=== PATIENT | male | born 1930 | race Caucasian/White ===

== ENCOUNTER 2019-08-17 15:02 | Inpatient (IN) | payer MEDICARE, OTHER ==
[~2019-08-17] VITALS: Ht 162.6 cm; Wt 80.0 kg
[~2019-08-17 15:02] MED LIST: CARV-50 PO; ESCI20TA38 PO; FURO40TA4 PO; LEVO75TA7 PO; POTA20TA10 PO; TAMS0.4C32 PO; WARF3TAB56 PO
[2019-08-17 16:01] LABS: BASOPHILS % (AUTO) 0.4 % (0-1); EOSINOPHILS # (AUTO) 0.1 X10'3 (0-0.9); EOSINOPHILS % (AUTO) 1.6 % (0-6); HEMATOCRIT 42.7 % (42.0-52.0); HEMOGLOBIN 14.1 g/dl (14.0-17.9); LYMPHOCYTES # (AUTO) 0.9 X10'3 (1.1-4.8); LYMPHOCYTES % (AUTO) 10.8 % (21-51); MEAN CORPUSCULAR HEMOGLOBIN 31.8 PG (27.0-31.0); MEAN CORPUSCULAR HGB CONC 33.1 g/dL (33.0-36.5); MEAN CORPUSCULAR VOLUME 96.2 FL (78-98); MEAN PLATELET VOLUME 8.9 FL (7.4-10.4); MONOCYTES # (AUTO) 0.8 X10'3 (0-0.9); MONOCYTES % (AUTO) 9.5 % (2-12); NEUTROPHILS # (AUTO) 6.7 X10'3 (1.8-7.7); NEUTROPHILS % (AUTO) 77.7 % (42-75); PLATELET COUNT 170 X10'3 (140-440); RED BLOOD COUNT 4.44 X10'6 (4.70-6.10); RED CELL DISTRIBUTION WIDTH 15.7 % (11.5-14.5); WHITE BLOOD COUNT 8.6 X10'3 (4.5-11.0)
[2019-08-17 16:06] LABS: ABG BASE EXCESS 1.2 mmol/L (-2.0-3.0); ABG HCO3 27.2 mmol/L (22.0-26.0); ABG PCO2 (T) 48.3 mmHg (35.0-45.0); ABG PH (T) 7.368 (7.350-7.450); ALLEN'S TEST Positive; FCOHb 1.8 % (0.5-1.5); FMetHb 0.1 % (0.3-1.12); FO2Hb 86.3 % (94-100); RESPIRATORY RATE 16 b/min; RESPIRATORY RATE (OBSERVED) 21 b/min; TOTAL HEMOGLOBIN 14.5 G/dl (14.0-17.9)
[2019-08-17 16:13] LABS: D-DIMER 0.54 MG/L FEU (0-0.50); PARTIAL THROMBOPLASTIN TIME 35 SECONDS (22-32)
[2019-08-17 16:17] LABS: ALANINE AMINOTRANSFERASE 29 U/L (12-78); ALBUMIN 3.2 G/DL (3.4-5.0); ALBUMIN/GLOBULIN RATIO 0.8 (1.1-1.5); ALKALINE PHOSPHATASE 69 IU/L (46-116); ANION GAP 5 (8-16); ASPARTATE AMINO TRANSFERASE 23 U/L (10-37); BILIRUBIN,TOTAL 0.9 MG/DL (0.1-1.0); BLOOD UREA NITROGEN 39 MG/DL (7-18); CALCIUM 8.4 MG/DL (8.5-10.1); CHLORIDE 108 MMOL/L (99-107); CREATININE 1.86 MG/DL (0.60-1.10); GLUCOSE 102 MG/DL (70-104); POTASSIUM 4.3 MMOL/L (3.5-5.1); SODIUM 145 MMOL/L (135-145); TOTAL CARBON DIOXIDE 32.3 MMOL/L (24-32); TOTAL PROTEIN 7.3 G/DL (6.4-8.2); eGFR 35 ML/MIN
[2019-08-17] MEDS ORDERED: furosemide 10 MG/1 ML 10ml inj IV ONE (16:55)
[2019-08-17] MEDS ORDERED: levoFLOXACIN-Levaquin 750MG/D5 150 ML IV ONE (17:05)
[2019-08-17] MEDS ORDERED: ondansetron/PF 4mg/2ml inj IV PRN (17:10)
[2019-08-17] MEDS ORDERED: mag hydrox/Alum hydrox/simeth 30ml oral suspension PO PRN (17:10)
[2019-08-17] MEDS ORDERED: acetaminophen 325mg tablet PO PRN (17:10)
[2019-08-17] MEDS ORDERED: magnesium hydroxide 30ml (MOM) UD suspension PO PRN (17:10)
[2019-08-17] MEDS ORDERED: albuterol 2.5 MG/3 ML nebule NEB PRN (17:10)
[2019-08-17] MEDS ORDERED: WARF3TAB56 PO (17:38)
[2019-08-17] MEDS ORDERED: FURO20TA4 PO (17:38)
[2019-08-17 18:48] LABS: CLARITY,URINE CLEAR (Clear); COLOR,URINE YELLOW (Yellow); GLUCOSE, URINE NEGATIVE (Neg); KETONES,URINE NEGATIVE (Neg); LEUKOCYTE ESTERASE ,URINE NEGATIVE (Neg); NITRITES, URINE NEGATIVE (Neg); OCCULT BLOOD,URINE NEGATIVE (Neg); PROTEIN,URINE NEGATIVE (Neg); UA COLLECTION TYPE STRAIGHT CATH; UROBILINOGEN,URINE 0.2 E.U/dL (0.2-1.0)
[2019-08-17 19:20] VITALS: BP 125/68
[2019-08-17] MEDS: carVEDilol 12.5mg tablet PO SCH (20:00)
[2019-08-17] MEDS ORDERED: heparin, porcine 5000 units/ml vial SQ SCH (20:00)
--- NOTE | 2019-08-17 20:48 | NUR ---
PAGER ID: [phone] MESSAGE: Thanh Waldo room 311, pt has expressive aphasia, wan all his MEDs IV, keep Him NPO until bedside swallow, can we do a CT of Head for any CON[employer]BER changes? Deangelo. [facility] unit 5654.
--- NOTE | 2019-08-17 21:43 | NUR ---
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 Concerned current presentation is off baseline. Please call to discuss. Addendum: 08/17/19 at 2152 by Viv Mckinnon RN per stroke nurse due to the length of time of symptoms and patients reported baseline, request level 2 workup from .
--- NOTE | 2019-08-17 21:55 | NUR ---
PAGER ID: [phone] MESSAGE: 311 pt Jiang presentation varying from baseline per . Spoke to stroke nurse regarding situation. May I have orders for head CT please? Please advise - [phone]
[2019-08-17 22:00] VITALS: BP 124/70
[2019-08-17] MEDS: furosemide 10 MG/1 ML 10ml inj IV SCH (22:35)
--- NOTE | 2019-08-17 23:50 | NUR ---
Called Dr. Machado and informed him regarding the patient not responding to any questions. The patient has a history of CVA. We requested to do a CT of the head to rule out any acute RED LEADER changes, but the Dr. Machado stated that since the condition is not acute we could reevaluate the patient in the morning. Recommended a bedside swallowing test and if the patient failed the test, then called him back. No other orders were given at this time.
--- NOTE | 2019-08-18 00:04 | NUR ---
patient refused bedside swallowing test. Hold on the PO medications until the patient passes bedside swallowing test. MelanieRN, charge nurse is aware of the issue.
[2019-08-18 02:00] VITALS: BP 124/96
[2019-08-18 03:40] LABS: BASOPHILS % (AUTO) 0.4 % (0-1); EOSINOPHILS # (AUTO) 0.3 X10'3 (0-0.9); EOSINOPHILS % (AUTO) 3.6 % (0-6); HEMATOCRIT 39.5 % (42.0-52.0); HEMOGLOBIN 13.2 g/dl (14.0-17.9); LYMPHOCYTES # (AUTO) 1.2 X10'3 (1.1-4.8); LYMPHOCYTES % (AUTO) 13.4 % (21-51); MEAN CORPUSCULAR HEMOGLOBIN 31.8 PG (27.0-31.0); MEAN CORPUSCULAR HGB CONC 33.4 g/dL (33.0-36.5); MEAN CORPUSCULAR VOLUME 95.3 FL (78-98); MEAN PLATELET VOLUME 8.8 FL (7.4-10.4); MONOCYTES % (AUTO) 11.4 % (2-12); NEUTROPHILS # (AUTO) 6.4 X10'3 (1.8-7.7); NEUTROPHILS % (AUTO) 71.2 % (42-75); PLATELET COUNT 157 X10'3 (140-440); RED BLOOD COUNT 4.15 X10'6 (4.70-6.10); RED CELL DISTRIBUTION WIDTH 15.3 % (11.5-14.5)
[2019-08-18 03:54] LABS: ALBUMIN 2.7 G/DL (3.4-5.0); ANION GAP 3 (8-16); BLOOD UREA NITROGEN 34 MG/DL (7-18); BUN/CREATININE RATIO 18.7 (5.4-32.0); CALCIUM 8.1 MG/DL (8.5-10.1); CHLORIDE 106 MMOL/L (99-107); CREATININE 1.82 MG/DL (0.60-1.10); GLUCOSE 85 MG/DL (70-104); POTASSIUM 3.7 MMOL/L (3.5-5.1); SODIUM 144 MMOL/L (135-145); TOTAL CARBON DIOXIDE 35.4 MMOL/L (24-32); eGFR 35 ML/MIN
[2019-08-18 06:00] VITALS: BP 144/62
--- NOTE | 2019-08-18 06:10 | NUR ---
Patient in room MED 311. I have received report from ALLYSSA King and had the opportunity to ask questions and assume patient care.
--- NOTE | 2019-08-18 06:22 | NUR ---
Gave report to Melvin. Answered all the questions.
--- NOTE | 2019-08-18 06:25 | NUR ---
I have reviewed and agree with all interventions, assessments performed and documented by Beth.
--- NOTE | 2019-08-18 07:56 | NUR ---
Paged Dr. Castellanos for head CT "Re: Waldo Jiang in 311. Patient has neuro changes from baseline- harder to arouse, more expressive aphasia than usual. can you order a head CT? thank you, Agnieszka FAJARDO [phone]"
[2019-08-18] MEDS ORDERED: levoFLOXACIN-Levaquin 500mg/D5 100 ML IV SCH (08:00)
[2019-08-18] MEDS: furosemide 10 MG/1 ML 10ml inj IV SCH ×2 (08:39→19:14)
--- NOTE | 2019-08-18 08:42 | NUR ---
DR. CARTER AT BEDSIDE, ORDER FOR ABG PAGED RT WELL CT FOR TESTS TO BE DONE RHETT
[2019-08-18 09:05] LABS: ABG BASE EXCESS 5.3 mmol/L (-2.0-3.0); ABG HCO3 33.3 mmol/L (22.0-26.0); ABG PCO2 (T) 63.8 mmHg (35.0-45.0); ABG PH (T) 7.335 (7.350-7.450); ABG PO2 (T) 112.7 mmHg (83-108); ALLEN'S TEST Positive; FCOHb 0.8 % (0.5-1.5); FLOW 3 L/min; FMetHb 0.3 % (0.3-1.12); FO2Hb 96.9 % (94-100); TOTAL HEMOGLOBIN 14.1 G/dl (14.0-17.9)
--- NOTE | 2019-08-18 09:06 | NUR ---
CT PAGED, PATIENT READY FOR TRANSPORT, NEED GURNEY
--- NOTE | 2019-08-18 11:00 | NUR ---
Patient to CT.
--- NOTE | 2019-08-18 12:00 | NUR ---
Continuous BiPAP started now per MD order.
[2019-08-18] MEDS: carVEDilol 12.5mg tablet PO SCH ×2 (12:23→19:15)
[2019-08-18] MEDS: warfarin 3mg tablet PO SCH (12:24)
[2019-08-18] MEDS: tamsulosin 0.4mg capsule PO SCH (12:24)
[2019-08-18] MEDS: ESCITALOPRAM OXALATE 5 MG TABLET PO SCH (12:25)
[2019-08-18] MEDS: levoTHYROXINE 75mcg tablet PO SCH (12:25)
[2019-08-18 13:01] VITALS: BP 139/64
--- NOTE | 2019-08-18 14:50 | NUR ---
PATIENT REFUSING TO WEAR BIPAP ANYMORE, ATTEMPTED TO EDUCATE PATIENT OF IMPORTANCE, BUT STILL REFUSES. IS AT BEDSIDE AND AWARE.
--- NOTE | 2019-08-18 14:55 | NUR ---
RESPIRATORY PAGED FOR REPEAT ABG 2HR POST BIPAP ON
[2019-08-18 15:00] VITALS: BP 110/56
[2019-08-18] MEDS: albuterol 2.5 MG/3 ML nebule NEB SCH ×2 (15:05→21:05)
[2019-08-18 15:25] LABS: ABG BASE EXCESS 7.9 mmol/L (-2.0-3.0); ABG HCO3 32.4 mmol/L (22.0-26.0); ABG OXYGEN SATURATION 93.4 % (95-98); ABG PCO2 (T) 44.2 mmHg (35.0-45.0); ABG PH (T) 7.483 (7.350-7.450); ABG PO2 (T) 60.5 mmHg (83-108); ALLEN'S TEST Positive; FCOHb 0.6 % (0.5-1.5); FLOW 0 L/min; FMetHb 0.2 % (0.3-1.12); FO2Hb 92.7 % (94-100); TOTAL HEMOGLOBIN 14.5 G/dl (14.0-17.9)
--- NOTE | 2019-08-18 15:39 | NUR ---
paged Dr. Castellanos CO2 improved "Re: Waldo Jiang in 311. patient only willing to wear bipap for 2 hours. CO2 got better. thank you, Agnieszka FAJARDO [phone]"
[2019-08-18 18:00] VITALS: BP 117/50
--- NOTE | 2019-08-18 18:00 | NUR ---
Patient in room MED 311. I have received report from Taylor SPIVEY and had the opportunity to ask questions and assume patient care.
--- NOTE | 2019-08-18 18:16 | NUR ---
Problems reprioritized. Patient report given, questions answered & plan of care reviewed with ALLYSSA King.
[2019-08-18] MEDS: lactobacillus rhamnosus 10,000 MMU CELLS/CAPSULE PO SCH (19:12)
[2019-08-18 22:00] VITALS: BP 100/55
[2019-08-19 02:00] VITALS: BP 111/58
[2019-08-19] MEDS: albuterol 2.5 MG/3 ML nebule NEB SCH ×4 (03:09→20:24)
[2019-08-19 05:26] LABS: BASOPHILS % (AUTO) 0.3 % (0-1); EOSINOPHILS # (AUTO) 0.3 X10'3 (0-0.9); EOSINOPHILS % (AUTO) 3.4 % (0-6); HEMATOCRIT 41.5 % (42.0-52.0); HEMOGLOBIN 13.8 g/dl (14.0-17.9); LYMPHOCYTES # (AUTO) 1.3 X10'3 (1.1-4.8); LYMPHOCYTES % (AUTO) 13.7 % (21-51); MEAN CORPUSCULAR HGB CONC 33.3 g/dL (33.0-36.5); MEAN CORPUSCULAR VOLUME 96.2 FL (78-98); MEAN PLATELET VOLUME 8.8 FL (7.4-10.4); MONOCYTES # (AUTO) 1.2 X10'3 (0-0.9); NEUTROPHILS # (AUTO) 6.5 X10'3 (1.8-7.7); NEUTROPHILS % (AUTO) 69.6 % (42-75); PLATELET COUNT 164 X10'3 (140-440); RED BLOOD COUNT 4.32 X10'6 (4.70-6.10); RED CELL DISTRIBUTION WIDTH 15.4 % (11.5-14.5); WHITE BLOOD COUNT 9.4 X10'3 (4.5-11.0)
[2019-08-19 05:35] LABS: ALBUMIN 2.6 G/DL (3.4-5.0); ANION GAP 2 (8-16); BLOOD UREA NITROGEN 36 MG/DL (7-18); BUN/CREATININE RATIO 17.3 (5.4-32.0); CALCIUM 8.3 MG/DL (8.5-10.1); CHLORIDE 103 MMOL/L (99-107); CREATININE 2.08 MG/DL (0.60-1.10); GLUCOSE 94 MG/DL (70-104); POTASSIUM 3.5 MMOL/L (3.5-5.1); SODIUM 144 MMOL/L (135-145); TOTAL CARBON DIOXIDE 39.5 MMOL/L (24-32); eGFR 30 ML/MIN
[2019-08-19 06:00] VITALS: BP 104/56
--- NOTE | 2019-08-19 06:05 | NUR ---
Patient in room MED 311. I have received report from ALLYSSA King and had the opportunity to ask questions and assume patient care.
--- NOTE | 2019-08-19 06:24 | NUR ---
I have reviewed and agree with all interventions, assessments performed and documented by Dick
--- NOTE | 2019-08-19 06:25 | NUR ---
gave report to Ester. Answered all the questions.
[2019-08-19] MEDS: levoFLOXACIN-Levaquin 250mg/D5 50 ML IV SCH (08:27)
[2019-08-19] MEDS: furosemide 10 MG/1 ML 10ml inj IV SCH (08:28)
[2019-08-19] MEDS: levoTHYROXINE 75mcg tablet PO SCH (08:29)
[2019-08-19] MEDS: lactobacillus rhamnosus 10,000 MMU CELLS/CAPSULE PO SCH ×2 (08:29→20:00)
[2019-08-19] MEDS: warfarin 3mg tablet PO SCH (08:29)
[2019-08-19] MEDS: tamsulosin 0.4mg capsule PO SCH (08:29)
[2019-08-19] MEDS: carVEDilol 12.5mg tablet PO SCH ×2 (08:29→20:51)
[2019-08-19] MEDS: ESCITALOPRAM OXALATE 5 MG TABLET PO SCH (08:29)
[2019-08-19] MEDS ORDERED: potassium CL 10mEq/100ml bag 100 ML IV PRN ×2 (09:35)
[2019-08-19] MEDS ORDERED: potassium Cl 20 mEq SR tablet PO PRN ×2 (09:35)
--- NOTE | 2019-08-19 09:36 | NUR ---
Pt with low Igor of 11. Per physical assessment pt with no edema or wounds. No nutrition intervention warranted at this time. Pt currently on pureed heart healthy diet with thin liquids documented with 0-25% PO intake x 2 meals. Noted that pt previously documented as confused and A/O x 1 however documented as A/O x 4 today. Likely PO intake will improve with increased alertness. Will continue to follow and monitor need for ONS. Addendum: 08/19/19 at [address] Amended: Links added.
[2019-08-19 11:00] VITALS: BP 130/59
--- NOTE | 2019-08-19 14:01 | NUR ---
PRESSURE ULCER EDUCATION: DEFINITION: A pressure ulcer is an area of skin that breaks down when you stay in one position too long. The constant pressure against the skin reduces the blood flow to that area and the affected tissue dies. CAUSES: "Being bedridden or in a wheelchair "Fragile skin "Having a chronic condition, such as diabetes or vascular disease "Inability to move certain parts of your body without assistance "Older age "Incontinence of urine or stool SYMPTOMS: "A reddened area that DOES NOT turn white when pressed on - this can be the beginning of a pressure ulcer "A blister, deep sore or a crater - these can be advanced pressure ulcers FIRST AID: "Relieve the pressure on this area "Keep the area clean and dry "Call your primary doctor if you see any of the above symptoms "DO NOT massage the area "DO NOT use a donut shaped or ring shaped pillow- these actually interfere with the blood flow and cause complications PREVENTION: "Check for pressure ulcers everyday "Change position at least every two hours to relieve pressure "Use items that help relieve pressure- pillows, sheepskin, foam padding, and powders. "Keep skin clean and dry "Eat healthy well balanced meals "Exercise daily IF YOU SEE ANY OF THESE SYMPTOMS WHILE IN THE HOSPITAL - TELL YOUR NURSE IMMEDIATELY. IF YOU SEE ANY OF THESE SYMPTOMS WHILE AT HOME OR HAVE ANY QUESTIONS OR CONCERNS ABOUT PRESSURE ULCERS - CALL YOUR PRIMARY DOCTOR IMMEDIATELY. Addendum: 08/19/19 at 1401 by Raegan Almeida RN Amended: Links added.
[2019-08-19 15:00] VITALS: BP 99/46
[2019-08-19 18:00] VITALS: BP 105/58
--- NOTE | 2019-08-19 18:45 | NUR ---
Problems reprioritized. Patient report given, questions answered & plan of care reviewed with ALLYSSA Robles.
[2019-08-19] MEDS: furosemide 20 MG/2 ML vial IV SCH (20:00)
[2019-08-19 22:00] VITALS: BP 89/39
[2019-08-20 02:00] VITALS: BP 101/53
[2019-08-20] MEDS: albuterol 2.5 MG/3 ML nebule NEB SCH ×4 (02:50→19:23)
[2019-08-20 04:38] LABS: BASOPHILS % (AUTO) 0.4 % (0-1); EOSINOPHILS # (AUTO) 0.5 X10'3 (0-0.9); EOSINOPHILS % (AUTO) 5.1 % (0-6); HEMATOCRIT 43.7 % (42.0-52.0); HEMOGLOBIN 14.6 g/dl (14.0-17.9); LYMPHOCYTES # (AUTO) 1.2 X10'3 (1.1-4.8); LYMPHOCYTES % (AUTO) 12.5 % (21-51); MEAN CORPUSCULAR HEMOGLOBIN 31.9 PG (27.0-31.0); MEAN CORPUSCULAR HGB CONC 33.4 g/dL (33.0-36.5); MEAN CORPUSCULAR VOLUME 95.8 FL (78-98); MEAN PLATELET VOLUME 8.6 FL (7.4-10.4); MONOCYTES # (AUTO) 1.2 X10'3 (0-0.9); MONOCYTES % (AUTO) 11.9 % (2-12); NEUTROPHILS % (AUTO) 70.1 % (42-75); PLATELET COUNT 159 X10'3 (140-440); RED BLOOD COUNT 4.57 X10'6 (4.70-6.10); RED CELL DISTRIBUTION WIDTH 15.2 % (11.5-14.5)
[2019-08-20 05:01] LABS: ALBUMIN 2.6 G/DL (3.4-5.0); ANION GAP 1 (8-16); BLOOD UREA NITROGEN 41 MG/DL (7-18); BUN/CREATININE RATIO 17.7 (5.4-32.0); CALCIUM 8.4 MG/DL (8.5-10.1); CHLORIDE 103 MMOL/L (99-107); CREATININE 2.31 MG/DL (0.60-1.10); GLUCOSE 115 MG/DL (70-104); POTASSIUM 3.6 MMOL/L (3.5-5.1); SODIUM 143 MMOL/L (135-145); eGFR 27 ML/MIN
[2019-08-20 06:00] VITALS: BP 109/53
--- NOTE | 2019-08-20 06:10 | NUR ---
Problems reprioritized. Patient report given, questions answered & plan of care reviewed with ALLYSSA Thomson.
--- NOTE | 2019-08-20 06:53 | NUR ---
Patient in room MED 311. I have received report from ALLYSSA carmona and had the opportunity to ask questions and assume patient care.
[2019-08-20] MEDS: K and/or MAG REPLACEMENT MC SCH (08:00)
[2019-08-20] MEDS: warfarin 3mg tablet PO SCH ×2 (08:00→20:51)
[2019-08-20 08:08] LABS: MAGNESIUM 2.3 MG/DL (1.5-2.4)
[2019-08-20] MEDS: levoFLOXACIN-Levaquin 250mg/D5 50 ML IV SCH (09:57)
[2019-08-20] MEDS: furosemide 20 MG/2 ML vial IV SCH ×2 (09:58→20:51)
[2019-08-20] MEDS: ESCITALOPRAM OXALATE 5 MG TABLET PO SCH (09:58)
[2019-08-20] MEDS: lactobacillus rhamnosus 10,000 MMU CELLS/CAPSULE PO SCH ×2 (09:58→20:50)
[2019-08-20] MEDS: carVEDilol 12.5mg tablet PO SCH ×2 (09:59→20:51)
[2019-08-20] MEDS: tamsulosin 0.4mg capsule PO SCH (09:59)
[2019-08-20] MEDS: levoTHYROXINE 75mcg tablet PO SCH (09:59)
[2019-08-20 11:00] VITALS: BP 104/55
[2019-08-20 15:00] VITALS: BP 124/64
--- NOTE | 2019-08-20 17:44 | NUR ---
RESPIRATORY PAGED: ABG ORDERED NOW
--- NOTE | 2019-08-20 17:44 | NUR ---
ANDREE CALLED: ORDERED RECEIVED - ABG NOW
[2019-08-20 18:00] VITALS: BP 98/56
[2019-08-20 18:05] LABS: ABG BASE EXCESS 11.7 mmol/L (-2.0-3.0); ABG HCO3 40.4 mmol/L (22.0-26.0); ABG OXYGEN SATURATION 97.8 % (95-98); ABG PCO2 (T) 70.2 mmHg (35.0-45.0); ABG PH (T) 7.378 (7.350-7.450); ABG PO2 (T) 105.8 mmHg (83-108); ALLEN'S TEST Positive; FCOHb 0.6 % (0.5-1.5); FLOW 2 L/min; FMetHb 0.3 % (0.3-1.12); FO2Hb 96.9 % (94-100); TOTAL HEMOGLOBIN 15.4 G/dl (14.0-17.9)
--- NOTE | 2019-08-20 18:07 | NUR ---
PAGER ID: [phone] MESSAGE: 311: ROB BROWN RESULTS ARE IN [facility] NURSE ENRIQUETA EXT [id number]
[2019-08-20] MEDS ORDERED: ipratropium/albuterol 3ml nebule NEB PRN (18:40)
[2019-08-20 22:00] VITALS: BP 98/56
[2019-08-21] VITALS (7 sets, daily range): BP systolic 102–116; BP diastolic 59–94
[2019-08-21] MEDS: albuterol 2.5 MG/3 ML nebule NEB SCH ×4 (02:09→20:21)
--- NOTE | 2019-08-21 06:31 | NUR ---
Patient in room MED 311. I have received report frOM ALLYSSA Truong and had the opportunity to ask questions and assume patient care.
[2019-08-21] MEDS: ESCITALOPRAM OXALATE 5 MG TABLET PO SCH (09:20)
[2019-08-21] MEDS: furosemide 20 MG/2 ML vial IV SCH ×2 (09:20→20:53)
[2019-08-21] MEDS: carVEDilol 12.5mg tablet PO SCH ×2 (09:21→20:00)
[2019-08-21] MEDS: tamsulosin 0.4mg capsule PO SCH (09:21)
[2019-08-21] MEDS: levoFLOXACIN-Levaquin 250mg/D5 50 ML IV SCH (09:21)
[2019-08-21] MEDS: lactobacillus rhamnosus 10,000 MMU CELLS/CAPSULE PO SCH ×2 (09:21→20:53)
[2019-08-21] MEDS: levoTHYROXINE 75mcg tablet PO SCH (09:21)
--- NOTE | 2019-08-21 11:05 | NUR ---
PATIENT REFUSING LABS PAGED DR. CANDELARIO "Re; JEREMY RIVAS IN 311. PATIENT REFUSING LABS. UNABLE TO DOSE COUMADIN. CAN YOU CALL BACK WITH SUGGESTION? THANK YOU, AMBER FAJARDO [phone]"
[2019-08-21 16:57] LABS: ALBUMIN 2.6 G/DL (3.4-5.0); ANION GAP 1 (8-16); BLOOD UREA NITROGEN 57 MG/DL (7-18); BUN/CREATININE RATIO 20.1 (5.4-32.0); CALCIUM 8.4 MG/DL (8.5-10.1); CHLORIDE 103 MMOL/L (99-107); CREATININE 2.83 MG/DL (0.60-1.10); GLUCOSE 113 MG/DL (70-104); MAGNESIUM 2.6 MG/DL (1.5-2.4); SODIUM 144 MMOL/L (135-145); TOTAL CARBON DIOXIDE 39.6 MMOL/L (24-32); eGFR 21 ML/MIN
--- NOTE | 2019-08-21 18:00 | NUR ---
Patient in room MED 311. I have received report from ENIRQUETA SPIVEY and had the opportunity to ask questions and assume patient care.
--- NOTE | 2019-08-21 19:32 | NUR ---
Needs bipap, water out in machine, Nisha campoverde RN
[2019-08-21] MEDS: warfarin 3mg tablet PO SCH (21:00)
[2019-08-22] VITALS (7 sets, daily range): BP systolic 94–124; BP diastolic 51–62
[2019-08-22] MEDS: albuterol 2.5 MG/3 ML nebule NEB SCH ×4 (02:04→20:26)
--- NOTE | 2019-08-22 06:05 | NUR ---
Patient in room MED 311. I have received report from ALLYSSA Cameron and had the opportunity to ask questions and assume patient care.
[2019-08-22 06:14] LABS: BASOPHILS % (AUTO) 0.3 % (0-1); EOSINOPHILS # (AUTO) 0.6 X10'3 (0-0.9); EOSINOPHILS % (AUTO) 6.3 % (0-6); HEMATOCRIT 43.5 % (42.0-52.0); HEMOGLOBIN 14.5 g/dl (14.0-17.9); LYMPHOCYTES # (AUTO) 1.4 X10'3 (1.1-4.8); LYMPHOCYTES % (AUTO) 15.4 % (21-51); MEAN CORPUSCULAR HGB CONC 33.3 g/dL (33.0-36.5); MEAN CORPUSCULAR VOLUME 96.1 FL (78-98); MEAN PLATELET VOLUME 9.1 FL (7.4-10.4); MONOCYTES # (AUTO) 0.9 X10'3 (0-0.9); MONOCYTES % (AUTO) 10.4 % (2-12); NEUTROPHILS # (AUTO) 5.9 X10'3 (1.8-7.7); NEUTROPHILS % (AUTO) 67.6 % (42-75); PLATELET COUNT 168 X10'3 (140-440); RED BLOOD COUNT 4.53 X10'6 (4.70-6.10); RED CELL DISTRIBUTION WIDTH 15.5 % (11.5-14.5); WHITE BLOOD COUNT 8.8 X10'3 (4.5-11.0)
[2019-08-22 06:24] LABS: ALBUMIN 2.6 G/DL (3.4-5.0); ANION GAP 0 (8-16); BLOOD UREA NITROGEN 57 MG/DL (7-18); BUN/CREATININE RATIO 22.4 (5.4-32.0); CALCIUM 8.6 MG/DL (8.5-10.1); CHLORIDE 103 MMOL/L (99-107); CREATININE 2.54 MG/DL (0.60-1.10); GLUCOSE 100 MG/DL (70-104); POTASSIUM 3.6 MMOL/L (3.5-5.1); SODIUM 142 MMOL/L (135-145); eGFR 24 ML/MIN
[2019-08-22] MEDS: K and/or MAG REPLACEMENT MC SCH ×2 (07:53→08:00)
[2019-08-22] MEDS: carVEDilol 12.5mg tablet PO SCH ×2 (08:00→20:40)
[2019-08-22] MEDS: furosemide 20 MG/2 ML vial IV SCH (08:16)
[2019-08-22] MEDS: lactobacillus rhamnosus 10,000 MMU CELLS/CAPSULE PO SCH ×2 (08:16→20:41)
[2019-08-22] MEDS: tamsulosin 0.4mg capsule PO SCH (08:16)
[2019-08-22] MEDS: ESCITALOPRAM OXALATE 5 MG TABLET PO SCH (08:16)
[2019-08-22] MEDS: levoFLOXACIN-Levaquin 250mg/D5 50 ML IV SCH (08:17)
[2019-08-22] MEDS: levoTHYROXINE 75mcg tablet PO SCH (08:17)
--- NOTE | 2019-08-22 10:00 | NUR ---
Student documentation and med administration: I have reviewed and agree with all interventions, assessments performed and documented by Taylor SPIVEY. Addendum: 08/22/19 at 1640 by Shanice Hayden RN Corrections: Orientation documentation and med administration reviewed.
--- NOTE | 2019-08-22 12:03 | NUR ---
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 SP/MD advanced to pureed/thin/heart healthy diet since pt tires easily w/ regular solids. Pt appears demented conversation quite limited w/ hypoxic metabolic encephalopathy per MD note. EF 60% and FTT per MD. PO 25% avg meals past 4 days not meeting needs and AOx3. Ensure pudding TIDWM added for additional needs; dietary notified. CRISTINE d/w RN regarding potential appetite stimulant per MD approval in hopes to improve PO. LBM 08/21 receiving MoM PRN. Will continue to monitor. Rec: 1. continue pureed/heart healthy/thin liquid diet per SP/MD 2. ensure pudding TIDWM 3. appetite stimulant per MD approval 4. weekly wts Addendum: 08/22/19 at [address] Amended: Links added.
--- NOTE | 2019-08-22 18:00 | NUR ---
Patient in room MED 311. I have received report from Shanice SPIVEY and had the opportunity to ask questions and assume patient care.
--- NOTE | 2019-08-22 18:15 | NUR ---
Problems reprioritized. Patient report given, questions answered & plan of care reviewed with ALLYSSA Cameron.
[2019-08-22] MEDS: warfarin 3mg tablet PO SCH (20:40)
[2019-08-23 00:21] VITALS: BP 124/58
[2019-08-23 02:00] VITALS: BP 97/57
[2019-08-23] MEDS: albuterol 2.5 MG/3 ML nebule NEB SCH ×2 (02:51→09:23)
[2019-08-23 05:40] LABS: BASOPHILS % (AUTO) 0.4 % (0-1); EOSINOPHILS # (AUTO) 0.5 X10'3 (0-0.9); EOSINOPHILS % (AUTO) 6.4 % (0-6); HEMATOCRIT 41.7 % (42.0-52.0); HEMOGLOBIN 13.9 g/dl (14.0-17.9); LYMPHOCYTES # (AUTO) 1.4 X10'3 (1.1-4.8); LYMPHOCYTES % (AUTO) 16.4 % (21-51); MEAN CORPUSCULAR HGB CONC 33.3 g/dL (33.0-36.5); MEAN CORPUSCULAR VOLUME 96.3 FL (78-98); MEAN PLATELET VOLUME 8.8 FL (7.4-10.4); MONOCYTES # (AUTO) 0.9 X10'3 (0-0.9); MONOCYTES % (AUTO) 10.8 % (2-12); NEUTROPHILS # (AUTO) 5.6 X10'3 (1.8-7.7); PLATELET COUNT 157 X10'3 (140-440); RED BLOOD COUNT 4.33 X10'6 (4.70-6.10); RED CELL DISTRIBUTION WIDTH 15.1 % (11.5-14.5); WHITE BLOOD COUNT 8.5 X10'3 (4.5-11.0)
[2019-08-23 05:57] LABS: ALBUMIN 2.4 G/DL (3.4-5.0); ANION GAP 2 (8-16); BLOOD UREA NITROGEN 58 MG/DL (7-18); BUN/CREATININE RATIO 22.8 (5.4-32.0); CALCIUM 8.9 MG/DL (8.5-10.1); CHLORIDE 102 MMOL/L (99-107); CREATININE 2.54 MG/DL (0.60-1.10); GLUCOSE 102 MG/DL (70-104); POTASSIUM 3.9 MMOL/L (3.5-5.1); SODIUM 142 MMOL/L (135-145); TOTAL CARBON DIOXIDE 37.6 MMOL/L (24-32); eGFR 24 ML/MIN
[2019-08-23 06:00] VITALS: BP 105/58
--- NOTE | 2019-08-23 06:00 | NUR ---
Patient in room MED 311. I have received report from ALLYSSA Cameron and had the opportunity to ask questions and assume patient care.
[2019-08-23] MEDS: K and/or MAG REPLACEMENT MC SCH (07:42)
[2019-08-23] MEDS: carVEDilol 12.5mg tablet PO SCH (07:43)
[2019-08-23] MEDS: lactobacillus rhamnosus 10,000 MMU CELLS/CAPSULE PO SCH (07:43)
[2019-08-23] MEDS: levoTHYROXINE 75mcg tablet PO SCH (07:43)
[2019-08-23] MEDS: ESCITALOPRAM OXALATE 5 MG TABLET PO SCH (07:43)
[2019-08-23] MEDS: tamsulosin 0.4mg capsule PO SCH (07:43)
[2019-08-23] MEDS ORDERED: furosemide 40mg tablet PO SCH (08:00)
[2019-08-23 08:29] LABS: MAGNESIUM 2.5 MG/DL (1.5-2.4)
[2019-08-23] MEDS ORDERED: FURO40TA4 PO (10:26)
[2019-08-23] MEDS ORDERED: nystatin 15 GM powder TP SCH (10:45)
--- NOTE | 2019-08-23 10:47 | NUR ---
PAGER ID: [phone] MESSAGE: RM 311 Toney Jiang. Do you want pt to go home on antibiotics? Taylor ACCE [phone]
[2019-08-23] MEDS ORDERED: levoFLOXACIN 250mg tablet PO SCH (11:00)
--- NOTE | 2019-08-23 11:00 | NUR ---
Called Dr. Centeno's office to schedule appt per [employer]. Left voicemail. Patient's aware, will call to make appointment within 1-2 weeks.
--- NOTE | 2019-08-23 12:00 | NUR ---
Orientee documentation and med administration: I have reviewed and agree with all interventions, assessments performed and documented by Taylor SPIVEY .
--- NOTE | 2019-08-23 12:00 | NUR ---
Patient stable for discharge per MD orders. All new prescriptions reviewed and called in to [facility] on [address]. Discharge instructions reviewed with patient and patient's ; patient to receive Home Health services, will call. PIV discontinued, cannula intact, clean, dry dressing in place. Telemetry discontinued. Family refused rehab knowing the risks of discharge to home. Had assist in patient transfer from bed to wheelchair; patient needed frequent cues to assist in transfer. Patient wheeled to lobby by two RNs at 1200 to be transported home by .
== END 2019-08-23 14:45 | disposition home health service (06) | DRG 291 ==
LOC: ER 15:02 → ED HOLD 17:07 → CMPBEDREQ 19:44 → MED 3N 19:45
PROVIDERS: ADMIT Family Medicine; ATTEND Internal Medicine
PROC: 5A09357 Assistance with Respiratory Ventilation, Less than 24 Consecutive Hours, Continuous Positive Airway Pressure (ICD-10-PCS; 2019-08-17)
PROC: 5A09357 Assistance with Respiratory Ventilation, Less than 24 Consecutive Hours, Continuous Positive Airway Pressure (ICD-10-PCS; 2019-08-18)
PROC: 5A09357 Assistance with Respiratory Ventilation, Less than 24 Consecutive Hours, Continuous Positive Airway Pressure (ICD-10-PCS; principal; 2019-08-20)
DX: I13.0 Hypertensive heart and chronic kidney disease with heart failure and stage 1 through stage 4 chronic kidney disease, or unspecified chronic kidney disease (principal); J18.9 Pneumonia, unspecified organism; J96.21 Acute and chronic respiratory failure with hypoxia; I50.43 Acute on chronic combined systolic (congestive) and diastolic (congestive) heart failure; J96.22 Acute and chronic respiratory failure with hypercapnia; G93.41 Metabolic encephalopathy; G93.1 Anoxic brain damage, not elsewhere classified; E03.9 Hypothyroidism, unspecified; F03.90 Unspecified dementia, unspecified severity, without behavioral disturbance, psychotic disturbance, mood disturbance, and anxiety; I35.0 Nonrheumatic aortic (valve) stenosis; I48.91 Unspecified atrial fibrillation; N18.3 Chronic kidney disease, stage 3 (moderate); R62.7 Adult failure to thrive; Z66 Do not resuscitate; Z79.01 Long term (current) use of anticoagulants; Z88.8 Allergy status to other drugs, medicaments and biological substances; Z79.899 Other long term (current) drug therapy; Z86.718 Personal history of other venous thrombosis and embolism; Z86.73 Personal history of transient ischemic attack (TIA), and cerebral infarction without residual deficits; Z95.0 Presence of cardiac pacemaker
CPT/HCPCS: 36415; 36600; 70450; 71045; 80048; 80053; 81003; 82803; 83605; 83735; 83880; 84443; 84484; 85018; 85025; 85379; 85610; 85730; 87040; 87081; 92508; 92616; 93005; 93306; 94640; 94660; 94760; 96374; 97110; 97116; 97162; 97530; 99285; G0378; J1940; J1956